=== PATIENT | male | born 1990 | race American Indian/Alaskan Native ===

== ENCOUNTER 2020-12-14 11:05 | Emergency (ER) | payer SELFPAY ==
[2020-12-14 11:24] VITALS: BP 107/72
--- NOTE | 2020-12-14 11:42 | Emergency Department Report ---
ED General Adult HPI - General Chief complaint: Extremity Injury, Upper Stated complaint: LT ARM/ELBOW INJURY LT KNEE/LEG PAIN Source: patient Mode of arrival: Ambulatory Limitations: No Limitations - History of Present Illness Initial comments: Patient is a 30-year-old male who presents emergency room with complaints of left elbow pain and left knee pain that occurred at work on 12/09/2019. He states that he was seated inside the truck when the trailer jolted while at work and states that he hit his elbow and his knee. He has been ambulatory without difficulty. He denies any swelling. He is using both the elbow and the knee. He denies any numbness or weakness. He states that he had a "dislocated left knee" in 2008. He denies any past medical history. No allergies to medications. - Related Data Home Medications Medication Instructions Recorded Confirmed Last Taken No Known Home Medications [No 05/25/14 05/25/14 Unknown Reported Home Medications] Allergies Allergy/AdvReac Type Severity Reaction Status Date / Time No Known Allergies Allergy Verified 12/14/20 11:21 ED Review of Systems ROS: Stated complaint: LT ARM/ELBOW INJURY LT KNEE/LEG PAIN Other details as noted in HPI Comment: All other systems reviewed and negative ED Past Medical Hx - Past Medical History Hx Psychiatric Treatment: No Additional medical history: ear problems - Surgical History Additional Surgical History: left ear surgery as child - Social History Substance Use Type: Marijuana - Medications Home Medications: Home Medications Medication Instructions Recorded Confirmed Last Taken Type No Known Home Medications [No 05/25/14 05/25/14 Unknown History Reported Home Medications] ED Physical Exam - General Limitations: No Limitations General appearance: alert, in no apparent distress - Head Head exam: Present: atraumatic, normocephalic - Eye Eye exam: Present: normal appearance - ENT ENT exam: Present: mucous membranes moist - Respiratory Respiratory exam: Absent: respiratory distress, accessory muscle use - Extremities Exam Extremities exam: Present: other (no bony ttp of the LUE or LLE, FROM of the LUE and LLE, no edema, no ecchymosis, no deformity, no joint laxity, pt is able to remove his jacket without assistance or difficulty, he is ambulating without difficulty, neurovascularly intact) - Neurological Exam Neurological exam: Present: alert, oriented X3 - Psychiatric Psychiatric exam: Present: normal affect, normal mood - Skin Skin exam: Present: warm, dry, intact ED Course Vital Signs 12/14/20 11:23 Temperature 97.9 F Pulse Rate 63 Respiratory 16 Rate Blood Pressure 107/72 O2 Sat by Pulse 100 Oximetry ED Medical Decision Making - Medical Decision Making Patient is a 30-year-old male who presents emergency room with complaints of left elbow pain and left knee pain that occurred at work on 12/09/2019. He states that he was seated inside the truck when the trailer jolted while at work and states that he hit his elbow and his knee. He has been ambulatory without difficulty. He denies any swelling. He is using both the elbow and the knee. He denies any numbness or weakness. He states that he had a "dislocated left knee" in 2008. He denies any past medical history. No allergies to medications. vitals are normal. on exam: no bony ttp of the LUE or LLE, FROM of the LUE and LLE, no edema, no ecchymosis, no deformity, no joint laxity, pt is able to remove his jacket without assistance or difficulty, he is ambulating without difficulty, neurovascularly intact. There are no signs of acute traumatic fracture or dislocation. No signs of joint effusion. He has full range of motion and no bony tenderness or deformities and is using all extremit ies without difficulty. advised pt May take Tylenol or ibuprofen as needed for discomfort. May use ice pack, heating pad, rest, Epsom salt bath. Follow-up with orthopedic doctor if symptoms or not improving. Return to emergency room for any new or worsening symptoms. Critical care attestation.: If time is entered above; I have spent that time in minutes in the direct care of this critically ill patient, excluding procedure time. ED Disposition Clinical Impression: Left elbow pain Left knee pain Qualifiers: Chronicity: acute Qualified Code(s): M25.562 - Pain in left knee Disposition: - TO HOME OR SELFCARE Is pt being admited?: No Does the pt Need Aspirin: No Condition: Stable Instructions: Musculoskeletal Pain Additional Instructions: May take Tylenol or ibuprofen as needed for discomfort. May use ice pack, heating pad, rest, Epsom salt bath. Follow-up with orthopedic doctor if sy mptoms or not improving. Return to emergency room for any new or worsening symptoms. Referrals: [facility] [Provider Group] - 3-5 Days ANJU BERGERON MD [Staff Physician] - 3-5 Days Time of Disposition: 11:42 Print Language: SAUDI ARABIAN
== END 2020-12-14 12:31 | disposition home or self-care (01) ==
LOC: ED 11:05
DX: M25.522 Pain in left elbow (principal); M25.562 Pain in left knee; F12.10 Cannabis abuse, uncomplicated; Z98.890 Other specified postprocedural states
CPT/HCPCS: 99282